=== PATIENT | female | born 1995 | race Caucasian/White ===

== ENCOUNTER 2018-04-18 22:55 | Inpatient (IN) | payer OTHER ==
[2018-04-18 23:30] VITALS: BMI 32.0
--- NOTE | 2018-04-19 00:15 | HP ---
COWS - Scale Resting Pulse: 0= [place] 80 or Below Sweatin=Flushed/Facial Moisture Restless Observation: 1= Difficult to Sit Still Pupil Size: 1= Pupils >than Normal Bone or Joint Aches: 4=Acute Joint/Muscle Pain Runny Nose/ Eye Tearin= None GI Upset > 30mins: 5=Frequent Vomit/Diarrhea (DIARRHEA X 8) Tremor Observation: 2= Slight Tremor Visible Yawning Observation: 0= None Anxiety or Irritability: 1=Feels Anxious/Irritable Goose Flesh Skin: 0=Smooth Skin COWS Score: 16 Admission [facility] Chief Complaint: HEROIN WITHDRAWAL SYMPTOMS Allergies/Adverse Reactions: Allergies Allergy/AdvReac Type Severity Reaction Status Date / Time Sulfa (Sulfonamide Allergy Verified 04/18/18 23:09 Antibiotics) History of Present Illness: 23 years old female with 4 years of heroin dependence is seeking admission to detox. Patient has been to previous detox and reports insignificant period of sobriety. She has medical history of asthma, depression and anxiety. She denies suicide attempt and suicidal ideation at this time - Ebola screening Have you traveled outside of the country in the last 21 days: No (N) Have you had contact with anyone from an Ebola affected area: No Do you have a fever: No - Review of Systems Constitutional: Chills, Malaise, Night Sweats, Changes in sleep, Weakness EENT: reports: No Symptoms Reported Respiratory: reports: No Symptoms reported Cardiac: reports: No Symptoms Reported GI: reports: Diarrhea (x 8), Poor Appetite, Poor Fluid Intake, Indigestion : reports: No Symptoms Reported Musculoskeletal: reports: Back Pain, Muscle Pain Integumentary: reports: Dryness Neuro: reports: Tremors Endocrine: reports: No Symptoms Reported Hematology: reports: No Symptoms Reported Psychiatric: reports: Judgement Intact, Mood/Affect Appropiate, Orientated x3 Other Systems: Reviewed and Negative Patient History - Patient Medical History Hx Anemia: No Hx Asthma: No Hx Chronic Obstructive Pulmonary Disease (COPD): No Hx Cancer: No Hx Cardiac Disorders: No Hx Congestive Heart Failure: No Hx Hypertension: No Hx Hypercholesterolemia: No Hx Pacemaker: No HX Cerebrovascular Accident: No Hx Seizures: No Hx Diabetes: No Hx Gastrointestinal Disorders: No Hx Genitourinary Disorders: No Hx Sexually Transmitted Disorders: No Hx Renal Disease (ESRD): No Hx Thyroid Disease: No Hx Human Immunodeficiency Virus (HIV): No (2017) Hx Hepatitis C: No Hx Depression: Yes Hx Suicide Attempt: No Hx Bipolar Disorder: No Hx Schizophrenia: No Other Medical History: Anxiety- Not on medication - Patient Surgical History Past Surgical History: No Hx Neurologic Surgery: No Hx Cataract Extraction: No Hx Cardiac Surgery: No Hx Lung Surgery: No Hx Breast Surgery: No Hx Breast Biopsy: No Hx Abdominal Surgery: No Hx Appendectomy: No Hx Cholecystectomy: No Hx Genitourinary Surgery: No Hx Section: No Hx Orthopedic Surgery: No Anesthesia Reaction: No - PPD History Previous Implant?: Yes Documented Results: Negative w/o proof Implanted On Prior R Admission?: No PPD to be Administered?: Yes - Reproductive History Patient is a Female of Child Bearing Age (11 -55 yrs old): No (Male) - Smoking Cessation Smoking history: Current every day smoker Have you smoked in the past 12 months: Yes Aproximately how many cigarettes per day: 20 Hx Chewing Tobacco Use: No Initiated information on smoking cessation: Yes 'Breaking Loose' booklet given: 04/19/18 - Substance & Tx. History Hx Alcohol Use: No Hx Substance Use: Yes Substance Use Type: Cocaine, Heroin Hx Substance Use Treatment: No - Substances Abused Heroin Route: Injection Frequency: Daily Amount used: 10 bags Age of first use: 19 Date of Last Use: 04/18/18 Cocaine Route: Inhalation Frequency: Daily Amount used: 1 bag Age of first use: 19 Date of Last Use: 04/18/18 Family Disease History - Family Disease History Family History: Denies Admission Physical Exam S - Vital Signs Vital Signs: Vital Signs - 24 hr 04/18/18 23:08 Temperature 97.5 F L Pulse Rate 74 Respiratory 18 Rate Blood Pressure 111/66 - Physical General Appearance: Yes: Moderate Distress HEENTM: Yes: Normal ENT Inspection, Normocephalic, Normal Voice, LISBET, Pharynx Normal Respiratory: Yes: Lungs Clear, Normal Breath Sounds, No Respiratory Distress Neck: Yes: Supple Breast: Yes: Breast Exam Deferred Cardiology: Yes: Regular Rhythm, Regular Rate Abdominal: Yes: Normal Bowel Sounds Genitourinary: Yes: Within Normal Limits Back: Yes: Normal Inspection Musculoskeletal: Yes: full range of Motion Extremities: Yes: Tremors Neurological: Yes: city planning engineer II-XII NML intact Integumentary: Yes: Warm Lymphatic: Yes: Within Normal Limits - Diagnostic (1) Asthma Current Visit: Yes Status: Acute (2) Depression Current Visit: Yes Status: Acute (3) Anxiety Current Visit: Yes Status: Acute Cleared for Admission [facility] - Detox or Rehab [facility] Level of Care: Medically Supervised Detox Regimen/Protocol: Methadone/Valium BHS Breath Alcohol Content Breath Alcohol Content: 0 Urine Pregancy Test - Result Urine Test Results: Negative- NO Line Present Urine Drug Screen - Results Drug Screen Negative: No Urine Drug Screen Results: ARMIN-Cocaine, OPI-Opiates, OXY-Oxycodone
[2018-04-19] MEDS ORDERED: MAGNESIUM HYDROX 2400MG/30ML ORAL SUSPENSION 30 ML CUP PO PRN (00:20)
[2018-04-19] MEDS ORDERED: guaiFENesin/D-METHORPHAN HB 10 ML UNIT-DOSE CUPS PO PRN (00:20)
[2018-04-19] MEDS ORDERED: MENTHOL/PHENOL 1 EACH UD MM PRN (00:20)
[2018-04-19] MEDS ORDERED: ACETAMINOPHEN 325 MG TABLET (FP) PO PRN (00:20)
[2018-04-19] MEDS ORDERED: P-EPHED 60MG/TRIPROLIDI 2.5MG TABLET PO PRN (00:20)
[2018-04-19] MEDS ORDERED: IBUPROFEN 400 MG TABLET (FP) PO PRN (00:20)
[2018-04-19] MEDS ORDERED: MAGNESIUM CITRATE 300 ML BOTTLE PO PRN (00:20)
[2018-04-19] MEDS ORDERED: chlordiazePOXIDE HCL 25 MG CAPSULE PO PRN (00:20)
[2018-04-19] MEDS ORDERED: METHADONE HCL 10 MG TABLET (FOR DETOX USE ONLY) PO ONE ×6 (00:20→23:00)
[2018-04-19] MEDS ORDERED: MAG HYDROX/AL HYDROX/SIMETH 30 ML UNIT-DOSE CUP PO PRN (00:20)
[2018-04-19] MEDS: diazePAM 5 MG TABLET PO PRN ×2 (03:49→17:46)
[2018-04-19] MEDS ORDERED: chlordiazePOXIDE HCL 25 MG CAPSULE PO SCH (05:00)
[2018-04-19] MEDS: PRENATAL VITAMINS W/ FOLIC ACID TABLET (FP) PO SCH (10:15)
[2018-04-19] MEDS: NICOTINE 14 MG/24 HOURS TOPICAL PATCH TD SCH (10:15)
[2018-04-19 10:19] LABS: HEMATOCRIT 38.7 % (32.4-45.2); HEMOGLOBIN 12.9 GM/dL (10.7-15.3); MCH 28.2 pg (25.7-33.7); MCHC 33.2 g/dl (32.0-36.0); MEAN PLT VOLUME 9.5 fl (7.5-11.1); PLATELET COUNT 207 K/MM3 (134-434); RBC 4.56 M/mm3 (3.60-5.2); RDW 15.4 % (11.6-15.6); WHITE BLOOD COUNT 6.8 K/mm3 (4.0-10.0)
--- NOTE | 2018-04-19 13:45 | PN ---
S COWS - Scale Resting Pulse: 0= [place] 80 or Below Sweatin= Chills/Flushing Restless Observation: 3= Extraneous Movement Pupil Size: 1= Pupils >than Normal Bone or Joint Aches: 2= Severe Diffuse Aches Runny Nose/ Eye Tearin= Runny Nose/Eyes GI Upset > 30mins: 2= Nausea/Diarrhea Tremor Observation of Outstretched Hands: 2= Slight Tremor Visible Yawning Observation: 1= 1-2x During Session Anxiety or Irritability: 2=Irritable/Anxious Goose Flesh Skin: 0=Smooth Skin COWS Score: 16 S Progress Note (SOAP) Subjective: alert,irritable,anxious,tremor,pain in the body and back Objective: 04/19/18 13:42 Vital Signs Temperature 98.2 F 04/19/18 10:03 Pulse Rate 79 04/19/18 10:03 Respiratory Rate 16 04/19/18 10:03 Blood Pressure 124/74 04/19/18 10:03 O2 Sat by Pulse Oximetry (%) ekg sinus bradycrdia 48/min qt/qtc 446/398 no chest pain,no sob,no dizziness 04/19/18 13:44 Laboratory Last Values WBC 6.8 K/mm3 (4.0-10.0) 04/19/18 08:00 RBC 4.56 M/mm3 (3.60-5.2) 04/19/18 08:00 Hgb 12.9 GM/dL (10.7-15.3) 04/19/18 08:00 Hct 38.7 % (32.4-45.2) 04/19/18 08:00 MCV 85.0 fl (80-96) 04/19/18 08:00 MCH 28.2 pg (25.7-33.7) 04/19/18 08:00 MCHC 33.2 g/dl (32.0-36.0) 04/19/18 08:00 RDW 15.4 % (11.6-15.6) 04/19/18 08:00 Plt Count 207 K/MM3 (134-434) 04/19/18 08:00 MPV 9.5 fl (7.5-11.1) 04/19/18 08:00 HIV 1&2 Antibody Screen Negative 04/19/18 08:00 HIV P24 Antigen Negative 04/19/18 08:00 labs pending Assessment: 04/19/18 13:44 withdrawal symptom Plan: continue detox
[2018-04-19] MEDS: NICOTINE POLACRILEX 2 MG GUM BC PRN ×2 (17:48→21:23)
[2018-04-19 18:55] LABS: URINE APPEARANCE SLCLOUDY; URINE BILIRUBIN NEGATIVE (<2.0 mg/dL); URINE COLOR YELLOW; URINE GLUCOSE (UA) NEGATIVE (NEGATIVE); URINE KETONE NEGATIVE (NEGATIVE); URINE LEUK ESTERASE TRACE (NEGATIVE); URINE NITRITE NEGATIVE (NEGATIVE); URINE PROTEIN NEGATIVE (NEGATIVE); URINE UROBILINOGEN NEGATIVE mg/dL (0.2-1.0)
[2018-04-19 19:07] LABS: EPI CELLS MODERATE /HPF (FEW); URINE MUCUS RARE
[2018-04-19] MEDS: LOPERAMIDE HCL 2 MG CAPSULE PO PRN (21:38)
[2018-04-19] MEDS: THIAMINE HCL 100 MG TABLET (FP) PO SCH (23:54)
[2018-04-20] MEDS ORDERED: chlordiazePOXIDE HCL 25 MG CAPSULE PO SCH (05:00)
--- NOTE | 2018-04-20 08:56 | EKG ---
Test Reason : Blood Pressure : / mmHG Vent. Rate : 048 BPM Atrial Rate : 048 BPM P-R Int : 146 ms QRS Dur : 096 ms QT Int : 446 ms P-R-T Axes : 062 086 069 degrees QTc Int : 398 ms SINUS BRADYCARDIA OTHERWISE NORMAL ECG NO PREVIOUS ECGS AVAILABLE Confirmed by GM LARSON, GENESIS ([id number]) on 04/20/2018 8:55:53 AM Referred By: Confirmed By:GENESIS WORRELL MD
[2018-04-20] MEDS ORDERED: METHADONE HCL 5 MG TABLET (FOR DETOX USE ONLY) PO SCH (10:00)
[2018-04-20] MEDS ORDERED: METHADONE HCL 10 MG TABLET (FOR DETOX USE ONLY) PO ONE (10:00)
[2018-04-20] MEDS: PRENATAL VITAMINS W/ FOLIC ACID TABLET (FP) PO SCH (10:18)
[2018-04-20] MEDS: NICOTINE 14 MG/24 HOURS TOPICAL PATCH TD SCH (10:18)
[2018-04-20] MEDS: diazePAM 5 MG TABLET PO PRN ×3 (10:18→20:04)
[2018-04-20 10:35] LABS: CHLORIDE 111 mmol/L (98-107); POTASSIUM 4.4 mmol/L (3.5-5.1); SODIUM 144 mmol/L (136-145)
[2018-04-20 10:50] LABS: ALBUMIN 3.4 g/dl (3.4-5.0); ALK PHOS 121 U/L (45-117); ANION GAP 8 (8-16); BILIRUBIN,TOTAL 0.2 mg/dL (0.2-1.0); BLOOD UREA NITROGEN 15 mg/dL (7-18); CALCIUM 8.6 mg/dL (8.5-10.1); CO2 25 mmol/L (21-32); CREATININE 0.8 mg/dL (0.55-1.02); GLUCOSE,RANDOM 90 mg/dL (74-106); SGOT/AST 13 U/L (15-37); SGPT/ALT 29 U/L (12-78); TOT PROT 6.3 g/dl (6.4-8.2)
--- NOTE | 2018-04-20 11:20 | PN ---
S COWS - Scale Resting Pulse: 0= [place] 80 or Below Sweatin= Chills/Flushing Restless Observation: 1= Difficult to Sit Still Pupil Size: 1= Pupils >than Normal Bone or Joint Aches: 2= Severe Diffuse Aches Runny Nose/ Eye Tearin= Nasal Congestion GI Upset > 30mins: 2= Nausea/Diarrhea Tremor Observation of Outstretched Hands: 2= Slight Tremor Visible Yawning Observation: 1= 1-2x During Session Anxiety or Irritability: 2=Irritable/Anxious Goose Flesh Skin: 0=Smooth Skin COWS Score: 13 BHS Progress Note (SOAP) Subjective: muscle cramping body aches joints pain sweat tremor chill cold gi distress Objective: 04/20/18 11:22 Vital Signs Temperature 98.1 F 04/20/18 10:51 Pulse Rate 67 04/20/18 10:51 Respiratory Rate 18 04/20/18 10:51 Blood Pressure 123/71 04/20/18 10:51 O2 Sat by Pulse Oximetry (%) Laboratory Last Values WBC 6.8 K/mm3 (4.0-10.0) 04/19/18 08:00 RBC 4.56 M/mm3 (3.60-5.2) 04/19/18 08:00 Hgb 12.9 GM/dL (10.7-15.3) 04/19/18 08:00 Hct 38.7 % (32.4-45.2) 04/19/18 08:00 MCV 85.0 fl (80-96) 04/19/18 08:00 MCH 28.2 pg (25.7-33.7) 04/19/18 08:00 MCHC 33.2 g/dl (32.0-36.0) 04/19/18 08:00 RDW 15.4 % (11.6-15.6) 04/19/18 08:00 Plt Count 207 K/MM3 (134-434) 04/19/18 08:00 MPV 9.5 fl (7.5-11.1) 04/19/18 08:00 Sodium 144 mmol/L (136-145) 04/20/18 07:40 Potassium 4.4 mmol/L (3.5-5.1) 04/20/18 07:40 Chloride 111 mmol/L (98-107) H 04/20/18 07:40 Carbon Dioxide 25 mmol/L (21-32) 04/20/18 07:40 Anion Gap 8 (8-16) 04/20/18 07:40 BUN 15 mg/dL (7-18) 04/20/18 07:40 Creatinine 0.8 mg/dL (0.55-1.02) 04/20/18 07:40 Creat Clearance w eGFR > 60 (>60) 04/20/18 07:40 Random Glucose 90 mg/dL (74-106) 04/20/18 07:40 Calcium 8.6 mg/dL (8.5-10.1) 04/20/18 07:40 Total Bilirubin 0.2 mg/dL (0.2-1.0) 04/20/18 07:40 AST 13 U/L (15-37) L 04/20/18 07:40 ALT 29 U/L (12-78) 04/20/18 07:40 Alkaline Phosphatase 121 U/L (45-117) H 04/20/18 07:40 Total Protein 6.3 g/dl (6.4-8.2) L 04/20/18 07:40 Albumin 3.4 g/dl (3.4-5.0) 04/20/18 07:40 Urine Color Yellow 04/19/18 Unknown Urine Appearance Slcloudy 04/19/18 Unknown Urine pH 6.0 (5.0-8.0) 04/19/18 Unknown Ur Specific Green 1.024 (1.001-1.035) 04/19/18 Unknown Urine Protein Negative (NEGATIVE) 04/19/18 Unknown Urine Glucose (UA) Negative (NEGATIVE) 04/19/18 Unknown Urine Ketones Negative (NEGATIVE) 04/19/18 Unknown Urine Blood Negative (NEGATIVE) 04/19/18 Unknown Urine Nitrite Negative (NEGATIVE) 04/19/18 Unknown Urine Bilirubin Negative (<2.0 mg/dL) 04/19/18 Unknown Urine Urobilinogen Negative mg/dL (0.2-1.0) 04/19/18 Unknown Ur Leukocyte Esterase Trace (NEGATIVE) 04/19/18 Unknown Urine WBC (Auto) 16 /hpf (3-5) 04/19/18 Unknown Urine RBC (Auto) 5 /hpf (0-3) 04/19/18 Unknown Ur Epithelial Cells Moderate /HPF (FEW) 04/19/18 Unknown Urine Mucus Rare 04/19/18 Unknown HIV 1&2 Antibody Screen Negative 04/19/18 08:00 HIV P24 Antigen Negative 04/19/18 08:00 lab noted repeat ua Assessment: 04/20/18 11:23 withdrawal sx repeat ua Plan: continue detox
[2018-04-20] MEDS: NICOTINE POLACRILEX 2 MG GUM BC PRN ×3 (11:41→20:04)
--- NOTE | 2018-04-20 11:57 | CONSULT ---
[facility] Psychiatric Consult - Data Date of interview: 04/20/18 Admission source: Referred by CPS ( child protective servives) Identifying data: 23 y/o female single, unemployed. domiciled, mother of 2 children , no source of income with the exception of support from her mother- in law Substance Abuse History: Admitted for Heroin abuse, IVDA, daily use and on and off since her adolescent age in addition to cocaine. This is her 3rd Detox admission, her last in patient Detox admission was August 2017. Refer to addiction counselor note forre more detailed subatance use history. Medical History: No active medical problem. No past surgical illness Psychiatric History: Patient reports a history of depression and anxiety, no prior psychiatrric hospitalization, she was medicated for a short period of time 3 years ago while in a Detoc program,. she did not recall the medication name, she dis did follow hewr after care treatment. Currently she feels sad depressed and anxious, poor sleep, appetite ok. She denies suicidal or homicidal ideation. Past treatment with Valium and Wellbutrin Physical/Sexual Abuse/Trauma History: No history of abuse or domestic violence Mental Status Exam - Mental Status Exam Alert and Oriented to: Place, Person Cognitive Function: Grossly Intact Patient Appearance: Well Groomed Mood: Depressed Affect: Appropriate Patient Behavior: Cooperative Speech Pattern: Clear Voice Loudness: Normal Thought Process: Intact Thought Disorder: Not Present Hallucinations: None Suicidal Ideation: None Homicidal Ideation: None Insight/Judgement: Poor Sleep: Poorly Appetite: Good Muscle strength/Tone: Normal Gait/Station: Normal Psychiatric Findings - Problem List ([place] 1, 2,3) (1) Cocaine dependence Current Visit: Yes Status: Acute (2) Opioid dependence with withdrawal Current Visit: Yes Status: Acute (3) Depression Current Visit: Yes Status: Chronic Qualifiers: Depression Type: unspecified Qualified Code(s): F32.9 - Major depressive disorder, single episode, unspecified - Initial Treatment Plan Initial Treatment Plan: Continue Detox treatment. Psychoeducation. Start on Wellbutrin 150 mg po daily. Melatonin prn. Monitor progress
[2018-04-20] MEDS: buPROPion HCL 100 MG TABLET PO SCH ×2 (13:02→22:06)
[2018-04-20] MEDS: MELATONIN 5 MG TABLETS PO PRN (22:06)
[2018-04-20] MEDS: THIAMINE HCL 100 MG TABLET (FP) PO SCH (22:06)
[2018-04-21] MEDS ORDERED: chlordiazePOXIDE 5 MG CAPSULE PO SCH (05:00)
[2018-04-21] MEDS: NICOTINE POLACRILEX 2 MG GUM BC PRN (08:28)
[2018-04-21] MEDS: LOPERAMIDE HCL 2 MG CAPSULE PO PRN (08:49)
[2018-04-21] MEDS: diazePAM 5 MG TABLET PO PRN ×4 (08:49→22:22)
[2018-04-21] MEDS ORDERED: METHADONE HCL 5 MG TABLET (FOR DETOX USE ONLY) PO ONE (10:00)
[2018-04-21] MEDS ORDERED: METHADONE HCL 5 MG TABLET (FOR DETOX USE ONLY) PO SCH (10:00)
[2018-04-21] MEDS: buPROPion HCL 100 MG TABLET PO SCH ×2 (10:02→22:22)
[2018-04-21] MEDS: PRENATAL VITAMINS W/ FOLIC ACID TABLET (FP) PO SCH (10:02)
[2018-04-21] MEDS: NICOTINE 14 MG/24 HOURS TOPICAL PATCH TD SCH (10:03)
[2018-04-21] MEDS: NICOTINE 21 MG/24 HOURS TOPICAL PATCH TD SCH (12:20)
[2018-04-21] MEDS: NICOTINE POLACRILEX 2 MG GUM BUC PRN ×3 (12:20→22:22)
--- NOTE | 2018-04-21 12:53 | PN ---
S Progress Note (SOAP) Subjective: alert,irritable,anxious,interrupted sleep,pain in the body and back,tremor Objective: 04/21/18 12:52 Vital Signs Temperature 98.2 F 04/21/18 09:56 Pulse Rate 77 04/21/18 09:56 Respiratory Rate 16 04/21/18 09:56 Blood Pressure 119/62 04/21/18 09:56 O2 Sat by Pulse Oximetry (%) Assessment: 04/21/18 12:52 withdrawal symptom Plan: continue detox,mylicon for gas
[2018-04-21] MEDS: SIMETHICONE 80 MG TAB.CHEW (FP) PO PRN ×2 (15:44→22:22)
[2018-04-21 16:57] LABS: URINE APPEARANCE SLCLOUDY; URINE BILIRUBIN NEGATIVE (<2.0 mg/dL); URINE COLOR LTYELLOW; URINE GLUCOSE (UA) NEGATIVE (NEGATIVE); URINE KETONE NEGATIVE (NEGATIVE); URINE NITRITE NEGATIVE (NEGATIVE); URINE PROTEIN NEGATIVE (NEGATIVE); URINE UROBILINOGEN NEGATIVE mg/dL (0.2-1.0)
[2018-04-21 17:06] LABS: URINE LEUK ESTERASE 2+ (NEGATIVE)
[2018-04-21 17:11] LABS: EPI CELLS MODERATE /HPF (FEW); URINE BACTERIA FEW /hpf (NONE SEEN)
[2018-04-21] MEDS: cloNIDine HCL 0.1 MG TABLET PO SCH (22:21)
[2018-04-21] MEDS: CYCLOBENZAPRINE HCL 10 MG TABLET (FP) PO PRN (22:22)
[2018-04-21] MEDS: THIAMINE HCL 100 MG TABLET (FP) PO SCH (22:22)
[2018-04-21] MEDS: MELATONIN 5 MG TABLETS PO PRN (22:29)
[2018-04-22] MEDS ORDERED: chlordiazePOXIDE HCL 10 MG CAPSULE PO SCH (05:00)
[2018-04-22] MEDS ORDERED: METHADONE HCL 5 MG TABLET (FOR DETOX USE ONLY) PO ONE (10:00)
[2018-04-22] MEDS: PRENATAL VITAMINS W/ FOLIC ACID TABLET (FP) PO SCH (10:11)
[2018-04-22] MEDS: buPROPion HCL 100 MG TABLET PO SCH ×2 (10:11→22:27)
[2018-04-22] MEDS: cloNIDine HCL 0.1 MG TABLET PO SCH ×2 (10:11→22:27)
[2018-04-22] MEDS: NICOTINE 21 MG/24 HOURS TOPICAL PATCH TD SCH (10:11)
[2018-04-22] MEDS: CYCLOBENZAPRINE HCL 10 MG TABLET (FP) PO PRN ×2 (10:12→18:58)
[2018-04-22] MEDS: hydrOXYzine PAMOATE 50 MG CAPSULE (FP) PO PRN ×4 (10:13→22:27)
[2018-04-22] MEDS: NICOTINE POLACRILEX 2 MG GUM BUC PRN ×3 (10:16→18:58)
[2018-04-22] MEDS: SIMETHICONE 80 MG TAB.CHEW (FP) PO PRN ×2 (13:55→22:27)
--- NOTE | 2018-04-22 15:30 | PN ---
S Progress Note (SOAP) Subjective: alert,irritable anxious,interrupted sleep Objective: 04/22/18 15:27 Vital Signs Temperature 98.1 F 04/22/18 13:28 Pulse Rate 64 04/22/18 13:28 Respiratory Rate 16 04/22/18 13:28 Blood Pressure 106/58 04/22/18 13:28 O2 Sat by Pulse Oximetry (%) 04/22/18 15:29 Laboratory Last Values WBC 6.8 K/mm3 (4.0-10.0) 04/19/18 08:00 RBC 4.56 M/mm3 (3.60-5.2) 04/19/18 08:00 Hgb 12.9 GM/dL (10.7-15.3) 04/19/18 08:00 Hct 38.7 % (32.4-45.2) 04/19/18 08:00 MCV 85.0 fl (80-96) 04/19/18 08:00 MCH 28.2 pg (25.7-33.7) 04/19/18 08:00 MCHC 33.2 g/dl (32.0-36.0) 04/19/18 08:00 RDW 15.4 % (11.6-15.6) 04/19/18 08:00 Plt Count 207 K/MM3 (134-434) 04/19/18 08:00 MPV 9.5 fl (7.5-11.1) 04/19/18 08:00 Sodium 144 mmol/L (136-145) 04/20/18 07:40 Potassium 4.4 mmol/L (3.5-5.1) 04/20/18 07:40 Chloride 111 mmol/L (98-107) H 04/20/18 07:40 Carbon Dioxide 25 mmol/L (21-32) 04/20/18 07:40 Anion Gap 8 (8-16) 04/20/18 07:40 BUN 15 mg/dL (7-18) 04/20/18 07:40 Creatinine 0.8 mg/dL (0.55-1.02) 04/20/18 07:40 Creat Clearance w eGFR > 60 (>60) 04/20/18 07:40 Random Glucose 90 mg/dL (74-106) 04/20/18 07:40 Calcium 8.6 mg/dL (8.5-10.1) 04/20/18 07:40 Total Bilirubin 0.2 mg/dL (0.2-1.0) 04/20/18 07:40 AST 13 U/L (15-37) L 04/20/18 07:40 ALT 29 U/L (12-78) 04/20/18 07:40 Alkaline Phosphatase 121 U/L (45-117) H 04/20/18 07:40 Total Protein 6.3 g/dl (6.4-8.2) L 04/20/18 07:40 Albumin 3.4 g/dl (3.4-5.0) 04/20/18 07:40 Urine Color Ltyellow 04/21/18 08:09 Urine Appearance Slcloudy 04/21/18 08:09 Urine pH 6.0 (5.0-8.0) 04/21/18 08:09 Ur Specific [place] 1.009 (1.001-1.035) 04/21/18 08:09 Urine Protein Negative (NEGATIVE) 04/21/18 08:09 Urine Glucose (UA) Negative (NEGATIVE) 04/21/18 08:09 Urine Ketones Negative (NEGATIVE) 04/21/18 08:09 Urine Blood Negative (NEGATIVE) 04/21/18 08:09 Urine Nitrite Negative (NEGATIVE) 04/21/18 08:09 Urine Bilirubin Negative (<2.0 mg/dL) 04/21/18 08:09 Urine Urobilinogen Negative mg/dL (0.2-1.0) 04/21/18 08:09 Ur Leukocyte Esterase 2+ (NEGATIVE) H 04/21/18 08:09 Urine WBC (Auto) 19 /hpf (3-5) 04/21/18 08:09 Urine RBC (Auto) <1 /hpf (0-3) 04/21/18 08:09 Ur Epithelial Cells Moderate /HPF (FEW) 04/21/18 08:09 Urine Bacteria Few /hpf (NONE SEEN) 04/21/18 08:09 Urine Mucus Rare 04/19/18 Unknown RPR Titer Nonreactive (NONREACTIVE) 04/20/18 07:40 HIV 1&2 Antibody Screen Negative 04/19/18 08:00 HIV P24 Antigen Negative 04/19/18 08:00 Assessment: 08/07/18 15:28 withdrawal symptom Plan: continue detox,repeat ua
[2018-04-22] MEDS: THIAMINE HCL 100 MG TABLET (FP) PO SCH (22:27)
[2018-04-23] MEDS ORDERED: METHADONE HCL 10 MG TABLET (FOR DETOX USE ONLY) PO SCH (10:00)
[2018-04-23] MEDS ORDERED: METHADONE HCL 10 MG TABLET (FOR DETOX USE ONLY) PO ONE (10:00)
[2018-04-23] MEDS: buPROPion HCL 100 MG TABLET PO SCH (10:19)
[2018-04-23] MEDS: cloNIDine HCL 0.1 MG TABLET PO SCH (10:19)
[2018-04-23] MEDS: PRENATAL VITAMINS W/ FOLIC ACID TABLET (FP) PO SCH (10:19)
[2018-04-23] MEDS: NICOTINE 21 MG/24 HOURS TOPICAL PATCH TD SCH (10:19)
[2018-04-23] MEDS: hydrOXYzine PAMOATE 50 MG CAPSULE (FP) PO PRN ×2 (10:21→14:25)
[2018-04-23] MEDS: SIMETHICONE 80 MG TAB.CHEW (FP) PO PRN (10:22)
[2018-04-23 10:54] LABS: URINE APPEARANCE SLCLOUDY; URINE BILIRUBIN NEGATIVE (<2.0 mg/dL); URINE COLOR LTYELLOW; URINE GLUCOSE (UA) NEGATIVE (NEGATIVE); URINE KETONE NEGATIVE (NEGATIVE); URINE NITRITE NEGATIVE (NEGATIVE); URINE PROTEIN NEGATIVE (NEGATIVE); URINE UROBILINOGEN NEGATIVE mg/dL (0.2-1.0)
[2018-04-23 11:19] LABS: URINE LEUK ESTERASE 2+ (NEGATIVE)
[2018-04-23 11:29] LABS: EPI CELLS MODERATE /HPF (FEW); URINE BACTERIA RARE /hpf (NONE SEEN); YEAST MANY
[2018-04-23] MEDS: CYCLOBENZAPRINE HCL 10 MG TABLET (FP) PO PRN (14:04)
--- NOTE | 2018-04-23 14:13 | PN ---
S Progress Note (SOAP) Subjective: alert,irritable,anxious,,interrupted sleep Objective: 04/23/18 14:12 Vital Signs Temperature 97.5 F L 04/23/18 09:34 Pulse Rate 100 H 04/23/18 09:34 Respiratory Rate 16 04/23/18 09:34 Blood Pressure 108/68 04/23/18 09:34 O2 Sat by Pulse Oximetry (%) Assessment: 04/23/18 14:12 withdrawal symptom Plan: continue detox,discharge in am
[2018-04-23] MEDS: NICOTINE POLACRILEX 2 MG GUM BUC PRN (14:26)
[2018-04-23 15:11] VITALS: BP 108/62; PULSE 77; TEMP 98.2
--- NOTE | 2018-04-23 17:19 | DS ---
[facility] Detox Discharge Summary Admission Date: 04/18/18 - History Present History: Cocaine Dependence, Opioid Dependence, Sedative Dependence ( PATIENT COMPLETED DETOX SAFELY AND ACCEPTED TRANSFER TO REHAB ON ) - Physical Exam Results Vital Signs: Vital Signs Temperature 98.2 F 04/23/18 15:08 Pulse Rate 77 04/23/18 15:08 Respiratory Rate 16 04/23/18 15:08 Blood Pressure 108/62 04/23/18 15:08 O2 Sat by Pulse Oximetry (%) - Treatment Hospital Course: Detox Protocol Followed, Detoxed Safely, Responded well, Rehab Referral Accepted - Medication Discharge Medications: Ambulatory Orders NK [No Known Home Medication] 04/18/18 - AMA Did Patient Leave Against Medical Advice: No
[2018-04-24] MEDS ORDERED: METHADONE HCL 5 MG TABLET (FOR DETOX USE ONLY) PO ONE (06:00)
[2018-04-24] MEDS ORDERED: METHADONE HCL 10 MG TABLET (FOR DETOX USE ONLY) PO SCH (06:00)
== END 2018-04-23 18:19 | disposition other institution (70) | DRG 773 ==
LOC: YASAS 22:55 → Y6N 23:11
PROVIDERS: ADMIT Surgery; ATTEND Surgery
PROC: HZ2ZZZZ Detoxification Services for Substance Abuse Treatment (ICD-10-PCS; principal; 2018-04-18)
DX: F11.23 Opioid dependence with withdrawal (principal); F14.20 Cocaine dependence, uncomplicated; F17.210 Nicotine dependence, cigarettes, uncomplicated; F41.9 Anxiety disorder, unspecified; F32.9 Major depressive disorder, single episode, unspecified; J45.909 Unspecified asthma, uncomplicated; R00.1 Bradycardia, unspecified; Z88.2 Allergy status to sulfonamides
CPT/HCPCS: 36415; 80053; 81003; 81015; 85027; 86593; 87389; 93005; 93010; J0735

== ENCOUNTER 2020-10-30 13:37 | Inpatient (IN) | payer OTHER ==
[2020-10-30] MEDS ORDERED: NICOTINE POLACRILEX 2 MG GUM BUC PRN (17:45)
[2020-10-30] MEDS ORDERED: ONDANSETRON *ODT* 4 MG TABLET SL PRN (17:45)
[2020-10-30] MEDS ORDERED: ACETAMINOPHEN 325 MG TABLET (FP) PO PRN ×2 (17:45)
[2020-10-30] MEDS ORDERED: cloNIDine HCL 0.1 MG TABLET PO PRN (17:45)
[2020-10-30] MEDS ORDERED: MAGNESIUM HYDROX 2400MG/30ML ORAL SUSPENSION 30 ML CUP PO PRN (17:45)
[2020-10-30] MEDS ORDERED: MAG HYDROX/AL HYDROX/SIMETH 30 ML UNIT-DOSE CUP PO PRN (17:45)
[2020-10-30] MEDS ORDERED: METHADONE HCL 10 MG TABLET (FOR DETOX USE ONLY) PO ONE (17:45)
[2020-10-30] MEDS ORDERED: BISMUTH SUBSALICYLATE 524 MG/30 ML UD PO PRN (17:45)
[2020-10-30] MEDS ORDERED: MAGNESIUM CITRATE 300 ML BOTTLE PO PRN (17:45)
[2020-10-30] MEDS ORDERED: METHOCARBAMOL 500 MG TABLET PO PRN (17:45)
[2020-10-30] MEDS ORDERED: MENTHOL/PHENOL 1 EACH UD MM PRN (17:45)
[2020-10-30] MEDS ORDERED: IBUPROFEN 400 MG TABLET (FP) PO PRN (17:45)
[2020-10-30] MEDS ORDERED: diazePAM 5 MG TABLET PO PRN (17:53)
[2020-10-30] MEDS ORDERED: BENZOCAINE 20 % GEL TUBE MM PRN (17:55)
[2020-10-30 18:54] VITALS: BMI 27.2
[2020-10-30] MEDS: hydrOXYzine PAMOATE 25 MG CAPSULE (FP) PO SCH ×2 (19:32→22:37)
[2020-10-30] MEDS: NICOTINE 21 MG/24 HOURS TOPICAL PATCH TD SCH (19:35)
[2020-10-30] MEDS ORDERED: MELATONIN 5 MG TABLETS PO SCH (22:00)
[2020-10-30] MEDS ORDERED: THIAMINE HCL 100 MG TABLET (FP) PO SCH (22:00)
[2020-10-30] MEDS: AMOXICILLIN 500 MG CAPSULE (FP) PO SCH (22:37)
[2020-10-31] MEDS: hydrOXYzine PAMOATE 25 MG CAPSULE (FP) PO SCH ×3 (06:51→14:25)
[2020-10-31] MEDS: AMOXICILLIN 500 MG CAPSULE (FP) PO SCH ×2 (06:52→14:25)
[2020-10-31] MEDS ORDERED: METHADONE HCL 5 MG TABLET (FOR DETOX USE ONLY) ONE (08:44)
[2020-10-31] MEDS ORDERED: METHADONE HCL 10 MG TABLET (FOR DETOX USE ONLY) ONE (08:44)
[2020-10-31] MEDS ORDERED: PRENATAL VITAMINS W/ FOLIC ACID TABLET (FP) PO SCH (10:00)
[2020-10-31] MEDS ORDERED: METHADONE (DETOX) 20 MG, METHADONE (DETOX) 5 MG PO ONE (10:00)
[2020-10-31] MEDS: NICOTINE 21 MG/24 HOURS TOPICAL PATCH TD SCH (10:17)
[2020-10-31 11:48] LABS: HEMOGLOBIN 13.1 GM/dL (10.7-15.3); MCH 28.9 pg (25.7-33.7); MCHC 33.5 g/dl (32.0-36.0); MEAN CELL VOLUME 86.1 fl (80-96); MEAN PLT VOLUME 9.8 fl (7.5-11.1); PLATELET COUNT 173 K/MM3 (134-434); RBC 4.54 M/mm3 (3.60-5.2); RDW 14.9 % (11.6-15.6); WHITE BLOOD COUNT 6.2 K/mm3 (4.0-10.0)
[2020-10-31 12:26] LABS: POTASSIUM 3.9 mmol/L (3.5-5.1)
[2020-10-31 12:32] LABS: ALBUMIN 3.4 g/dl (3.4-5.0)
[2020-10-31 12:33] LABS: BLOOD UREA NITROGEN 15.1 mg/dL (7-18); CALCIUM 8.5 mg/dL (8.5-10.1)
[2020-10-31 12:37] LABS: CREATININE 0.9 mg/dL (0.55-1.3)
[2020-10-31 12:38] LABS: BILIRUBIN,TOTAL 0.3 mg/dL (0.2-1); TOT PROT 6.4 g/dl (6.4-8.2)
[2020-10-31] MEDS ORDERED: NICOTINE POLACRILEX 4 MG GUM BUC PRN (13:30)
[2020-10-31] MEDS ORDERED: guaiFENesin 600 MG TABLET.ER (FP) PO SCH (14:00)
[2020-10-31 19:34] VITALS: BP 133/69; PULSE 73; TEMP 97.7
[2020-11-01] MEDS ORDERED: METHADONE HCL 10 MG TABLET (FOR DETOX USE ONLY) PO ONE (10:00)
[2020-11-02] MEDS ORDERED: METHADONE (DETOX) 10 MG, METHADONE (DETOX) 5 MG PO ONE (10:00)
[2020-11-03] MEDS ORDERED: METHADONE HCL 10 MG TABLET (FOR DETOX USE ONLY) PO ONE (10:00)
[2020-11-04] MEDS ORDERED: METHADONE HCL 5 MG TABLET (FOR DETOX USE ONLY) PO ONE (06:00)
== END 2020-10-31 19:08 | disposition left against medical advice (07) | DRG 770 ==
LOC: YASAS 13:37 → Y6N 18:17
PROVIDERS: ADMIT Allergy & Immunology; ATTEND Allergy & Immunology
PROC: HZ2ZZZZ Detoxification Services for Substance Abuse Treatment (ICD-10-PCS; principal; 2020-10-30)
DX: F11.23 Opioid dependence with withdrawal (principal); F13.230 Sedative, hypnotic or anxiolytic dependence with withdrawal, uncomplicated; F12.20 Cannabis dependence, uncomplicated; F17.210 Nicotine dependence, cigarettes, uncomplicated; F19.24 Other psychoactive substance dependence with psychoactive substance-induced mood disorder; F43.10 Post-traumatic stress disorder, unspecified; F41.8 Other specified anxiety disorders; F32.9 Major depressive disorder, single episode, unspecified; U07.1 COVID-19; J45.909 Unspecified asthma, uncomplicated; K05.10 Chronic gingivitis, plaque induced; Z86.69 Personal history of other diseases of the nervous system and sense organs; Z88.2 Allergy status to sulfonamides
CPT/HCPCS: 36415; 80053; 81025; 85027; 86780; C9803; U0003